=== PATIENT | female | born 1930 | race African-American/Black ===

== ENCOUNTER 2017-08-15 16:36 | Inpatient (IN) ==
[2017-08-15] MEDS ORDERED: FUROSEMIDE 40 MG/4 ML VIAL IV STA (17:58)
[2017-08-15] MEDS ORDERED: FUROSEMIDE 40 MG/4 ML VIAL ONE (18:53)
[2017-08-15 19:01] LABS: Basophils % 0.1 % (0.0-0.8); Hematocrit 35.6 VOL% (35.7-47.0); Immature Granulocytes % 0.5 %; Immature Granulocytes Absolute 0.05 #; Lymphocytes # 1.3 10*3/uL (1.4-4.0); Lymphocytes % 13.4 % (21.3-54.2); Mean Corpuscular HGB Conc 30.9 GM/DL (32-36); Mean Corpuscular Hemoglobin 32 PG (27-34); Mean Corpuscular Volume 103.5 FL (87-102); Mean Platelet Volume 9.9 FL (9.6-12.0); Monocytes # 0.6 10*3/uL (0.11-0.8); Monocytes % 6.6 % (1.7-12.7); Neutrophils # 7.6 10*3/uL (1.4-7.4); Neutrophils % 79.4 % (38.7-73.9); Platelet Count 323 T/CUMM (130-400); Red Blood Count 3.44 MC/CUMM (3.8-5.5); Red Cell Distribution Width 14.6 % (9.3-17.3); White Blood Count 9.6 T/CUMM (4-12)
[2017-08-15 19:28] LABS: Albumin 2.6 G/DL (3.4-5.0); Bilirubin,Total 0.4 MG/DL (0.2-1.0); Calcium 8.9 MG/DL (8.5-10.1); Osmolality,Calculated 293.8 MOS/KG (273-304); Potassium 4.8 MMOL/L (3.5-5.1); Total Protein 6.8 G/DL (6.4-8.3)
[2017-08-15 19:31] LABS: Troponin I Only 0.142 NG/ML (0.00-0.045)
[2017-08-15 21:24] LABS: Apearance,Urine CLOUDY (Clear); Bilirubin,Urine Negative (Negative); Blood, Urine Small mg/dL (Negative); Glucose,Urine (UA) Negative (Negative); Ketones,Urine 5 mg/dL (Negative); Nitrite,Urine Negative (Negative); Protein,Urine 100 MG/DL; Squamous Epithelial Cell,Urine Moderate /HPF (0-10); Urine Color Yellow (Yellow); Urine Specific Gravity 1.009 (1.001-1.035); Urine Urobilinogen < 2.0 EU/DL (0.2-1.0); WBC,Urine 858 /HPF (0-6)
[2017-08-15] MEDS ORDERED: cefTRIAXone 1,000 MG in SYRINGE 1 EACH IV SCH (22:00)
[2017-08-15] MEDS ORDERED: cefTRIAXone 1,000 MG VIAL ONE (22:42)
[2017-08-15] MEDS ORDERED: MORPHINE 2 MG/1 ML SYRINGE IV STA (22:53)
[2017-08-15] MEDS ORDERED: GLUCAGON 1 MG VIAL IM PRN (23:14)
[2017-08-15] MEDS ORDERED: DEXTROSE 50% 25 GM/50 ML VIAL IV PRN (23:14)
[2017-08-16 02:33] LABS: Basophils % 0.1 % (0.0-0.8); Hematocrit 32.8 VOL% (35.7-47.0); Hemoglobin 10.2 GM/DL (12.0-16.0); Immature Granulocytes % 0.6 %; Immature Granulocytes Absolute 0.05 #; Lymphocytes # 1.8 10*3/uL (1.4-4.0); Lymphocytes % 21.5 % (21.3-54.2); Mean Corpuscular HGB Conc 31.1 GM/DL (32-36); Mean Corpuscular Hemoglobin 32 PG (27-34); Mean Corpuscular Volume 102.2 FL (87-102); Mean Platelet Volume 10.1 FL (9.6-12.0); Monocytes # 0.7 10*3/uL (0.11-0.8); Monocytes % 8.9 % (1.7-12.7); Neutrophils # 5.7 10*3/uL (1.4-7.4); Neutrophils % 68.9 % (38.7-73.9); Platelet Count 290 T/CUMM (130-400); Red Blood Count 3.21 MC/CUMM (3.8-5.5); Red Cell Distribution Width 14.5 % (9.3-17.3); White Blood Count 8.3 T/CUMM (4-12)
[2017-08-16 02:52] LABS: Osmolality,Calculated 295.5 MOS/KG (273-304); Potassium 4.6 MMOL/L (3.5-5.1)
[2017-08-16 03:02] LABS: Folate 8.4 NG/ML (5.4-24.0)
[2017-08-16] MEDS: BUMETANIDE 1 MG/4 ML VIAL IV SCH ×2 (08:21→10:24)
[2017-08-16] MEDS: INSULIN LISPRO 100 UNIT/ML SUBCUT SCH ×4 (08:38→20:28)
[2017-08-16] MEDS ORDERED: SULFAMETHOX/TRIMETHOPRIM 800-160 MG TABLET PO SCH ×2 (14:30→15:00)
[2017-08-16] MEDS: GABAPENTIN 100 MG CAPSULE PO PRN (14:33)
[2017-08-16] MEDS: COLCHICINE 0.6 MG TABLET PO PRN (14:34)
[2017-08-16] MEDS ORDERED: ZINC OXIDE PASTE 113 GM TUBE TOP PRN (15:17)
[2017-08-16] MEDS: CARVEDILOL 6.25 MG TABLET PO SCH (17:34)
[2017-08-16] MEDS: FLUTICASONE 50 MCG NASAL SPRAY 16 GM BOTTLE BOTH NARES SCH (20:30)
[2017-08-17 06:02] LABS: Basophils % 0.2 % (0.0-0.8); Hematocrit 28.7 VOL% (35.7-47.0); Hemoglobin 8.9 GM/DL (12.0-16.0); Immature Granulocytes % 0.3 %; Immature Granulocytes Absolute 0.03 #; Lymphocytes # 2.4 10*3/uL (1.4-4.0); Lymphocytes % 25.8 % (21.3-54.2); Mean Corpuscular Hemoglobin 32 PG (27-34); Mean Corpuscular Volume 102.9 FL (87-102); Mean Platelet Volume 9.9 FL (9.6-12.0); Monocytes % 10.4 % (1.7-12.7); Neutrophils # 5.8 10*3/uL (1.4-7.4); Neutrophils % 63.3 % (38.7-73.9); Platelet Count 253 T/CUMM (130-400); Red Blood Count 2.79 MC/CUMM (3.8-5.5); Red Cell Distribution Width 14.5 % (9.3-17.3); White Blood Count 9.1 T/CUMM (4-12)
[2017-08-17 06:32] LABS: Calcium 7.8 MG/DL (8.5-10.1); Osmolality,Calculated 290.7 MOS/KG (273-304); Potassium 4.2 MMOL/L (3.5-5.1)
[2017-08-17] MEDS: INSULIN LISPRO 100 UNIT/ML SUBCUT SCH ×4 (07:32→22:15)
[2017-08-17] MEDS: CARVEDILOL 6.25 MG TABLET PO SCH ×2 (08:57→17:55)
[2017-08-17] MEDS: ALLOPURINOL 300 MG TABLET PO SCH (09:31)
[2017-08-17] MEDS: FUROSEMIDE 80 MG TABLET PO SCH (09:31)
[2017-08-17] MEDS: predniSONE 5 MG TABLET PO SCH (09:31)
[2017-08-17] MEDS: COLCHICINE 0.6 MG TABLET PO PRN ×2 (09:32→22:41)
[2017-08-17] MEDS: FLUTICASONE 50 MCG NASAL SPRAY 16 GM BOTTLE BOTH NARES SCH ×2 (09:33→22:43)
[2017-08-17] MEDS: AMPICILLIN INJ 1,000 MG in SODIUM CHLORIDE 0.9% 100 ML IV SCH ×2 (17:55→22:37)
[2017-08-17] MEDS: GABAPENTIN 100 MG CAPSULE PO PRN (22:41)
[2017-08-18] MEDS: traMADol 50 MG TABLET PO PRN (01:26)
[2017-08-18] MEDS: AMPICILLIN INJ 1,000 MG in SODIUM CHLORIDE 0.9% 100 ML IV SCH ×4 (04:59→22:45)
[2017-08-18 06:47] LABS: Basophils % 0.2 % (0.0-0.8); Hematocrit 27.2 VOL% (35.7-47.0); Hemoglobin 8.7 GM/DL (12.0-16.0); Immature Granulocytes % 0.4 %; Immature Granulocytes Absolute 0.03 #; Lymphocytes # 2.1 10*3/uL (1.4-4.0); Lymphocytes % 26.1 % (21.3-54.2); Mean Corpuscular Hemoglobin 32 PG (27-34); Mean Corpuscular Volume 100.7 FL (87-102); Monocytes # 0.7 10*3/uL (0.11-0.8); Monocytes % 8.6 % (1.7-12.7); Neutrophils # 5.3 10*3/uL (1.4-7.4); Neutrophils % 64.7 % (38.7-73.9); Platelet Count 236 T/CUMM (130-400); Red Cell Distribution Width 14.6 % (9.3-17.3); White Blood Count 8.2 T/CUMM (4-12)
[2017-08-18 07:07] LABS: Calcium 7.8 MG/DL (8.5-10.1); Osmolality,Calculated 288.8 MOS/KG (273-304); Potassium 4.2 MMOL/L (3.5-5.1)
[2017-08-18] MEDS: INSULIN LISPRO 100 UNIT/ML SUBCUT SCH ×4 (07:57→21:13)
[2017-08-18] MEDS: ALLOPURINOL 300 MG TABLET PO SCH (08:53)
[2017-08-18] MEDS: CARVEDILOL 6.25 MG TABLET PO SCH ×2 (08:53→17:19)
[2017-08-18] MEDS: GABAPENTIN 100 MG CAPSULE PO PRN ×2 (08:54→22:49)
[2017-08-18] MEDS: COLCHICINE 0.6 MG TABLET PO PRN (08:54)
[2017-08-18] MEDS: predniSONE 5 MG TABLET PO SCH (08:54)
[2017-08-18] MEDS: FUROSEMIDE 80 MG TABLET PO SCH (08:54)
[2017-08-18] MEDS: FLUTICASONE 50 MCG NASAL SPRAY 16 GM BOTTLE BOTH NARES SCH ×2 (08:54→22:48)
[2017-08-18] MEDS ORDERED: SODIUM CHLORIDE 0.9% 1,000 ML IV SCH (13:00)
[2017-08-18] MEDS: MAGNESIUM CHLORIDE 64 MG TABLET PO SCH ×2 (13:23→22:49)
[2017-08-19] MEDS: AMPICILLIN INJ 1,000 MG in SODIUM CHLORIDE 0.9% 100 ML IV SCH (05:46)
[2017-08-19 06:18] LABS: Calcium 7.8 MG/DL (8.5-10.1); Osmolality,Calculated 291.7 MOS/KG (273-304); Potassium 4.4 MMOL/L (3.5-5.1)
[2017-08-19] MEDS ORDERED: AZITHROMYCIN 250 MG TABLET PO ONE (07:46)
[2017-08-19] MEDS ORDERED: NIFEdipine 10 MG CAPSULE PO PRN (07:48)
[2017-08-19] MEDS ORDERED: LEVOFLOXACIN INJ 500 MG in PREMIX 1 EACH IV SCH ×2 (08:00→09:00)
[2017-08-19] MEDS: INSULIN LISPRO 100 UNIT/ML SUBCUT SCH ×4 (08:37→22:51)
[2017-08-19] MEDS: CARVEDILOL 6.25 MG TABLET PO SCH ×2 (08:40→16:55)
[2017-08-19] MEDS: FLUTICASONE 50 MCG NASAL SPRAY 16 GM BOTTLE BOTH NARES SCH ×2 (08:40→22:47)
[2017-08-19] MEDS: predniSONE 5 MG TABLET PO SCH (08:40)
[2017-08-19] MEDS: MAGNESIUM CHLORIDE 64 MG TABLET PO SCH ×2 (08:40→22:47)
[2017-08-19] MEDS: ALLOPURINOL 300 MG TABLET PO SCH (08:40)
[2017-08-19] MEDS: COLCHICINE 0.6 MG TABLET PO PRN ×2 (08:40→22:47)
[2017-08-19] MEDS: GABAPENTIN 100 MG CAPSULE PO PRN ×2 (08:41→22:48)
[2017-08-19] MEDS: traMADol 50 MG TABLET PO PRN (13:16)
[2017-08-20] MEDS: INSULIN LISPRO 100 UNIT/ML SUBCUT SCH ×4 (09:03→21:42)
[2017-08-20] MEDS: AZITHROMYCIN 250 MG TABLET PO SCH (09:05)
[2017-08-20] MEDS: ALLOPURINOL 300 MG TABLET PO SCH (09:05)
[2017-08-20] MEDS: MAGNESIUM CHLORIDE 64 MG TABLET PO SCH ×2 (09:05→21:40)
[2017-08-20] MEDS: predniSONE 5 MG TABLET PO SCH (09:06)
[2017-08-20] MEDS: CARVEDILOL 6.25 MG TABLET PO SCH ×2 (09:06→17:15)
[2017-08-20] MEDS: FLUTICASONE 50 MCG NASAL SPRAY 16 GM BOTTLE BOTH NARES SCH ×2 (09:06→21:41)
[2017-08-20] MEDS ORDERED: SODIUM TETRADECYL SULFATE IV ONE (11:01)
[2017-08-20] MEDS ORDERED: TUBERCULIN SKIN TEST 0.1 ML SYRINGE INTRADERM ONE (12:00)
[2017-08-20] MEDS: traMADol 50 MG TABLET PO PRN (15:33)
[2017-08-20] MEDS: ENOXAPARIN 30 MG/0.3 ML SYRINGE SUBCUT SCH (17:16)
[2017-08-20 18:05] LABS: PT Patient Result 10.9 SECS
[2017-08-21 05:33] LABS: PT Patient Result 10.8 SECS
[2017-08-21] MEDS: INSULIN LISPRO 100 UNIT/ML SUBCUT SCH ×4 (08:55→20:42)
[2017-08-21] MEDS: ALLOPURINOL 300 MG TABLET PO SCH (08:57)
[2017-08-21] MEDS: MAGNESIUM CHLORIDE 64 MG TABLET PO SCH ×2 (08:57→20:41)
[2017-08-21] MEDS: CARVEDILOL 6.25 MG TABLET PO SCH ×2 (08:57→17:09)
[2017-08-21] MEDS: AZITHROMYCIN 250 MG TABLET PO SCH (08:57)
[2017-08-21] MEDS: FLUTICASONE 50 MCG NASAL SPRAY 16 GM BOTTLE BOTH NARES SCH ×2 (08:58→20:43)
[2017-08-21] MEDS: predniSONE 5 MG TABLET PO SCH (08:58)
[2017-08-21] MEDS: LEVOFLOXACIN 500 MG TABLET PO SCH (09:01)
[2017-08-21 11:04] LABS: Basophils % 0.2 % (0.0-0.8); Hematocrit 29.9 VOL% (35.7-47.0); Hemoglobin 9.4 GM/DL (12.0-16.0); Immature Granulocytes % 0.6 %; Immature Granulocytes Absolute 0.03 #; Lymphocytes # 1.8 10*3/uL (1.4-4.0); Mean Corpuscular HGB Conc 31.4 GM/DL (32-36); Mean Corpuscular Hemoglobin 32 PG (27-34); Mean Corpuscular Volume 102.4 FL (87-102); Mean Platelet Volume 9.4 FL (9.6-12.0); Monocytes # 0.6 10*3/uL (0.11-0.8); Neutrophils # 2.7 10*3/uL (1.4-7.4); Neutrophils % 52.2 % (38.7-73.9); Platelet Count 238 T/CUMM (130-400); Red Blood Count 2.92 MC/CUMM (3.8-5.5); Red Cell Distribution Width 14.8 % (9.3-17.3); White Blood Count 5.1 T/CUMM (4-12)
[2017-08-21 12:39] LABS: Calcium 8.1 MG/DL (8.5-10.1); Osmolality,Calculated 287.2 MOS/KG (273-304); Potassium 4.5 MMOL/L (3.5-5.1)
[2017-08-21] MEDS: GABAPENTIN 100 MG CAPSULE PO PRN (15:19)
[2017-08-21] MEDS: ENOXAPARIN 30 MG/0.3 ML SYRINGE SUBCUT SCH (20:42)
[2017-08-22 06:14] LABS: Basophils % 0.2 % (0.0-0.8); Hematocrit 29.9 VOL% (35.7-47.0); Hemoglobin 9.3 GM/DL (12.0-16.0); Immature Granulocytes % 0.5 %; Immature Granulocytes Absolute 0.03 #; Lymphocytes # 2.1 10*3/uL (1.4-4.0); Lymphocytes % 36.1 % (21.3-54.2); Mean Corpuscular HGB Conc 31.1 GM/DL (32-36); Mean Corpuscular Hemoglobin 32 PG (27-34); Mean Platelet Volume 9.8 FL (9.6-12.0); Monocytes # 0.5 10*3/uL (0.11-0.8); Monocytes % 8.8 % (1.7-12.7); Neutrophils # 3.1 10*3/uL (1.4-7.4); Neutrophils % 54.4 % (38.7-73.9); Platelet Count 240 T/CUMM (130-400); Red Blood Count 2.93 MC/CUMM (3.8-5.5); Red Cell Distribution Width 14.6 % (9.3-17.3); White Blood Count 5.7 T/CUMM (4-12)
[2017-08-22 06:33] LABS: Platelet Estimate Normal
[2017-08-22] MEDS ORDERED: SKIN HEALING OINT (AQUAPHOR) 50 GM TUBE TOP PRN (09:15)
[2017-08-22] MEDS: predniSONE 5 MG TABLET PO SCH (09:16)
[2017-08-22] MEDS: MAGNESIUM CHLORIDE 64 MG TABLET PO SCH ×2 (09:16→20:34)
[2017-08-22] MEDS: CARVEDILOL 6.25 MG TABLET PO SCH ×2 (09:16→16:19)
[2017-08-22] MEDS: AZITHROMYCIN 250 MG TABLET PO SCH (09:16)
[2017-08-22] MEDS: GABAPENTIN 100 MG CAPSULE PO PRN (09:16)
[2017-08-22] MEDS: INSULIN LISPRO 100 UNIT/ML SUBCUT SCH ×4 (09:17→21:18)
[2017-08-22] MEDS: ALLOPURINOL 300 MG TABLET PO SCH (09:18)
[2017-08-22] MEDS: FLUTICASONE 50 MCG NASAL SPRAY 16 GM BOTTLE BOTH NARES SCH ×2 (09:18→20:34)
[2017-08-22] MEDS ORDERED: WARFARIN 5 MG TABLET PO SCH (18:00)
[2017-08-22] MEDS: ENOXAPARIN 30 MG/0.3 ML SYRINGE SUBCUT SCH (20:33)
[2017-08-23 06:03] LABS: Basophils % 0.4 % (0.0-0.8); Hematocrit 29.5 VOL% (35.7-47.0); Hemoglobin 9.2 GM/DL (12.0-16.0); Immature Granulocytes % 0.5 %; Immature Granulocytes Absolute 0.03 #; Lymphocytes % 35.6 % (21.3-54.2); Mean Corpuscular HGB Conc 31.2 GM/DL (32-36); Mean Corpuscular Hemoglobin 32 PG (27-34); Mean Platelet Volume 9.8 FL (9.6-12.0); Monocytes # 0.5 10*3/uL (0.11-0.8); Monocytes % 8.7 % (1.7-12.7); Neutrophils % 54.8 % (38.7-73.9); Platelet Count 239 T/CUMM (130-400); Red Blood Count 2.92 MC/CUMM (3.8-5.5); Red Cell Distribution Width 14.7 % (9.3-17.3); White Blood Count 5.5 T/CUMM (4-12)
[2017-08-23 06:35] LABS: Ferritin 59.4 ng/ml (8-252)
[2017-08-23 07:26] LABS: INR 1.1; PT Patient Result 11.2 SECS
[2017-08-23] MEDS: INSULIN LISPRO 100 UNIT/ML SUBCUT SCH ×2 (07:26→11:23)
[2017-08-23] MEDS: ALLOPURINOL 300 MG TABLET PO SCH (08:50)
[2017-08-23] MEDS: traMADol 50 MG TABLET PO PRN (08:51)
[2017-08-23] MEDS: MAGNESIUM CHLORIDE 64 MG TABLET PO SCH (08:51)
[2017-08-23] MEDS: AZITHROMYCIN 250 MG TABLET PO SCH (08:51)
[2017-08-23] MEDS: LEVOFLOXACIN 500 MG TABLET PO SCH (08:51)
[2017-08-23] MEDS: predniSONE 5 MG TABLET PO SCH (08:51)
[2017-08-23] MEDS: CARVEDILOL 6.25 MG TABLET PO SCH (08:52)
[2017-08-23] MEDS: FLUTICASONE 50 MCG NASAL SPRAY 16 GM BOTTLE BOTH NARES SCH (08:55)
[2017-08-23] MEDS ORDERED: amLODIPine 10 MG TABLET PO SCH (10:00)
[2017-08-23 11:59] VITALS: BP 111/60
== END 2017-08-23 15:08 | DRG 299 ==
LOC: N.ED 16:36 → SUATTDRO 21:59 → N.EDINP 21:59 → N.2E 23:30
PROVIDERS: ADMIT Internal Medicine; ATTEND Internal Medicine

== ENCOUNTER 2017-09-14 08:30 | Inpatient (IN) ==
[2017-09-14] MEDS ORDERED: ONDANSETRON 4 MG/2 ML VIAL IV STA (09:10)
[2017-09-14] MEDS ORDERED: PANTOPRAZOLE 40 MG VIAL IV STA (09:10)
[2017-09-14 10:52] LABS: Immature Granulocytes % 0.4 %; Immature Granulocytes Absolute 0.03 #; Lymphocytes # 2.1 10*3/uL (1.4-4.0); Lymphocytes % 27.2 % (21.3-54.2); Mean Corpuscular HGB Conc 30.4 GM/DL (32-36); Mean Corpuscular Hemoglobin 32 PG (27-34); Mean Corpuscular Volume 103.8 FL (87-102); Mean Platelet Volume 9.8 FL (9.6-12.0); Monocytes # 0.4 10*3/uL (0.11-0.8); Monocytes % 5.5 % (1.7-12.7); Neutrophils # 5.1 10*3/uL (1.4-7.4); Neutrophils % 66.9 % (38.7-73.9); Platelet Count 185 T/CUMM (130-400); Red Blood Count 1.84 MC/CUMM (3.8-5.5); Red Cell Distribution Width 15.3 % (9.3-17.3); White Blood Count 7.6 T/CUMM (4-12)
[2017-09-14 10:55] LABS: Hematocrit 19.1 VOL% (35.7-47.0); Hemoglobin 5.8 GM/DL (12.0-16.0)
[2017-09-14] MEDS ORDERED: SODIUM CHLORIDE 0.9% 1,000 ML IV PRN ×3 (11:00→14:57)
[2017-09-14] MEDS ORDERED: PANTOPRAZOLE 40 MG VIAL IV ONE (11:04)
[2017-09-14] MEDS ORDERED: ONDANSETRON 4 MG/2 ML VIAL ONE ×2 (11:05→11:58)
[2017-09-14 11:16] LABS: PT Patient Result 62.5 SECS; Partial Thromboplastin Time 43.4 SECS (0-40)
[2017-09-14 11:18] LABS: INR 6.3; Troponin I Only 0.176 NG/ML (0.00-0.045)
[2017-09-14] MEDS ORDERED: PHYTONADIONE 10 MG/1 ML AMP IV STA (11:21)
[2017-09-14 11:35] LABS: Bilirubin,Total 0.5 MG/DL (0.2-1.0); Calcium 7.6 MG/DL (8.5-10.1); Osmolality,Calculated 332.5 MOS/KG (273-304); Total Protein 4.7 G/DL (6.4-8.3)
[2017-09-14 11:38] LABS: Potassium 6.4 MMOL/L (3.5-5.1)
[2017-09-14] MEDS ORDERED: DEXTROSE 50% 25 GM/50 ML VIAL IV STA (11:41)
[2017-09-14] MEDS ORDERED: CALCIUM CHLORIDE 1,000 MG/10 ML SYRINGE IV STA (11:41)
[2017-09-14] MEDS ORDERED: ALBUTEROL NEB SOLN 5 MG/ML 20 ML/BOTTLE CONT NEB STA (11:41)
[2017-09-14] MEDS ORDERED: INSULIN REGULAR 100 UNIT/ML IV STA (11:42)
[2017-09-14] MEDS ORDERED: DEXTROSE 50% 25 GM/50 ML SYRINGE IV ONE (11:52)
[2017-09-14] MEDS ORDERED: CALCIUM CHLORIDE 1,000 MG/10 ML SYRINGE IV ONE ×2 (11:52→20:47)
[2017-09-14] MEDS ORDERED: PHYTONADIONE 10 MG/1 ML AMP ONE (11:52)
[2017-09-14] MEDS ORDERED: INSULIN REGULAR 100 UNIT/ML ONE (11:54)
[2017-09-14] MEDS ORDERED: ASPIRIN 325 MG TABLET ONE (11:58)
[2017-09-14] MEDS ORDERED: guaiFENesin/DM ER 600-30 MG TABLET PO PRN (13:35)
[2017-09-14] MEDS ORDERED: ONDANSETRON 4 MG/2 ML VIAL IV PRN (13:35)
[2017-09-14] MEDS ORDERED: MORPHINE 2 MG/1 ML SYRINGE IV PRN (13:35)
[2017-09-14] MEDS ORDERED: diphenhydrAMINE CAP 25 MG CAPSULE PO PRN (13:35)
[2017-09-14] MEDS ORDERED: ACETAMINOPHEN 325 MG TABLET PO PRN ×2 (13:35)
[2017-09-14] MEDS ORDERED: PHYTONADIONE 10 MG/1 ML AMP SUBCUT ONE (13:44)
[2017-09-14] MEDS: PANTOPRAZOLE 40 MG VIAL IV SCH ×2 (16:54→20:41)
[2017-09-14] MEDS: SODIUM CHLORIDE 0.9% 1,000 ML IV SCH (18:40)
[2017-09-14 20:32] LABS: Albumin 2.4 G/DL (3.4-5.0); Bilirubin,Total 1.3 MG/DL (0.2-1.0); Calcium 8.3 MG/DL (8.5-10.1); Osmolality,Calculated 333.3 MOS/KG (273-304); Total Protein 4.7 G/DL (6.4-8.3)
[2017-09-14 20:34] LABS: Troponin I Only 0.132 NG/ML (0.00-0.045)
[2017-09-14 20:35] LABS: Potassium 6.5 MMOL/L (3.5-5.1)
[2017-09-14] MEDS ORDERED: SODIUM BICARBONATE 50 MEQ/50 ML SYRINGE IV ONE (20:47)
[2017-09-14] MEDS ORDERED: INSULIN REGULAR 100 UNIT/ML IV ONE (20:47)
[2017-09-14] MEDS ORDERED: DEXTROSE 50% 25 GM/50 ML VIAL IV ONE (20:47)
[2017-09-15] MEDS ORDERED: CALCIUM GLUCONATE 1,000 MG/10 ML VIAL IV ONE (00:01)
[2017-09-15] MEDS: BACITRACIN OINT 0.9 GM PACK TOP SCH ×2 (05:12→09:21)
[2017-09-15] MEDS: SODIUM CHLORIDE 0.9% 1,000 ML IV SCH ×5 (05:12→20:30)
[2017-09-15 05:39] LABS: INR 1.6; PT Patient Result 16.7 SECS
[2017-09-15 05:42] LABS: Calcium 8.6 MG/DL (8.5-10.1); Osmolality,Calculated 341.7 MOS/KG (273-304); Potassium 5.5 MMOL/L (3.5-5.1)
[2017-09-15 07:22] LABS: Hematocrit 19.6 VOL% (35.7-47.0); Hemoglobin 6.5 GM/DL (12.0-16.0); Immature Granulocytes % 0.8 %; Immature Granulocytes Absolute 0.08 #; Lymphocytes # 1.7 10*3/uL (1.4-4.0); Lymphocytes % 17.5 % (21.3-54.2); Mean Corpuscular HGB Conc 33.2 GM/DL (32-36); Mean Corpuscular Hemoglobin 32 PG (27-34); Mean Corpuscular Volume 95.6 FL (87-102); Mean Platelet Volume 10.5 FL (9.6-12.0); Monocytes # 0.6 10*3/uL (0.11-0.8); Monocytes % 5.7 % (1.7-12.7); NRBC # 0.04 10*3/uL; Neutrophils # 7.3 10*3/uL (1.4-7.4); Platelet Count 112 T/CUMM (130-400); Red Blood Count 2.05 MC/CUMM (3.8-5.5); Red Cell Distribution Width 15.1 % (9.3-17.3); White Blood Count 9.6 T/CUMM (4-12)
[2017-09-15 07:46] LABS: Band Neutrophils 1 % (0-10); Hypochromasia 1+; Lymphocytes 14 % (20-55); Segmented Neutrophils 84 % (50-85); Total Cells Counted 100
[2017-09-15 07:47] LABS: Microcytosis 1+; Platelet Estimate Adequate
[2017-09-15] MEDS: PANTOPRAZOLE 40 MG VIAL IV SCH ×2 (09:09→20:51)
[2017-09-15] MEDS ORDERED: SODIUM CHLORIDE 0.9% 1,000 ML IV PRN ×2 (11:06→12:29)
[2017-09-15 19:02] LABS: Hematocrit 24.7 VOL% (35.7-47.0); Hemoglobin 8.5 GM/DL (12.0-16.0)
[2017-09-16 05:42] LABS: Hematocrit 23.3 VOL% (35.7-47.0); Hemoglobin 7.8 GM/DL (12.0-16.0); Immature Granulocytes % 0.7 %; Immature Granulocytes Absolute 0.06 #; Lymphocytes # 1.5 10*3/uL (1.4-4.0); Lymphocytes % 17.9 % (21.3-54.2); Mean Corpuscular HGB Conc 33.5 GM/DL (32-36); Mean Corpuscular Hemoglobin 31 PG (27-34); Mean Corpuscular Volume 92.5 FL (87-102); Mean Platelet Volume 10.6 FL (9.6-12.0); Monocytes # 0.5 10*3/uL (0.11-0.8); Monocytes % 5.8 % (1.7-12.7); NRBC # 0.05 10*3/uL; Neutrophils # 6.3 10*3/uL (1.4-7.4); Neutrophils % 75.6 % (38.7-73.9); Platelet Count 94 T/CUMM (130-400); Red Blood Count 2.52 MC/CUMM (3.8-5.5); Red Cell Distribution Width 16.1 % (9.3-17.3); White Blood Count 8.4 T/CUMM (4-12)
[2017-09-16 05:47] LABS: INR 1.5; PT Patient Result 15.7 SECS
[2017-09-16] MEDS: SODIUM CHLORIDE 0.9% 1,000 ML IV SCH ×3 (06:00→21:54)
[2017-09-16 06:09] LABS: Osmolality,Calculated 339.4 MOS/KG (273-304); Potassium 4.9 MMOL/L (3.5-5.1)
[2017-09-16 06:37] LABS: Anisocytosis 1+; Hypochromasia 1+; Microcytosis 1+; Ovalocytes Slight; Platelet Estimate Decreased
[2017-09-16] MEDS: PANTOPRAZOLE 40 MG VIAL IV SCH ×2 (11:22→21:54)
[2017-09-16] MEDS: BACITRACIN OINT 0.9 GM PACK TOP SCH (11:28)
[2017-09-16] MEDS ORDERED: traMADol 50 MG TABLET PO PRN (13:19)
[2017-09-16] MEDS ORDERED: SKIN HEALING OINT (AQUAPHOR) 50 GM TUBE TOP PRN (13:19)
[2017-09-16] MEDS ORDERED: GABAPENTIN 100 MG CAPSULE PO PRN (13:19)
[2017-09-16] MEDS ORDERED: SODIUM CHLORIDE 0.9% 1,000 ML IV PRN ×2 (14:39→15:26)
[2017-09-16] MEDS: predniSONE 10 MG TABLET PO SCH (19:21)
[2017-09-16] MEDS: FLUTICASONE 50 MCG NASAL SPRAY 16 GM BOTTLE BOTH NARES SCH ×2 (19:21→21:54)
[2017-09-16] MEDS: ALLOPURINOL 300 MG TABLET PO SCH (19:21)
[2017-09-16] MEDS: MAGNESIUM CHLORIDE 64 MG TABLET PO SCH ×2 (19:21→21:54)
[2017-09-16] MEDS: MULTIVITAMIN (CENTRUM) TABLET PO SCH (19:22)
[2017-09-17] MEDS: SODIUM CHLORIDE 0.9% 1,000 ML IV SCH (00:06)
[2017-09-17] MEDS: DEXTROSE 5% NACL 0.45% 1,000 ML IV SCH ×3 (00:08→15:55)
[2017-09-17 04:59] LABS: Basophils % 0.1 % (0.0-0.8); Hematocrit 28.7 VOL% (35.7-47.0); Hemoglobin 9.3 GM/DL (12.0-16.0); Immature Granulocytes % 0.6 %; Immature Granulocytes Absolute 0.04 #; Lymphocytes # 1.4 10*3/uL (1.4-4.0); Lymphocytes % 19.4 % (21.3-54.2); Mean Corpuscular HGB Conc 32.4 GM/DL (32-36); Mean Corpuscular Hemoglobin 31 PG (27-34); Mean Corpuscular Volume 96.6 FL (87-102); Mean Platelet Volume 10.8 FL (9.6-12.0); Monocytes # 0.5 10*3/uL (0.11-0.8); Monocytes % 7.6 % (1.7-12.7); NRBC # 0.07 10*3/uL; Neutrophils # 5.1 10*3/uL (1.4-7.4); Neutrophils % 72.3 % (38.7-73.9); Red Blood Count 2.97 MC/CUMM (3.8-5.5); Red Cell Distribution Width 15.7 % (9.3-17.3); White Blood Count 7.1 T/CUMM (4-12)
[2017-09-17 05:01] LABS: INR 1.7; PT Patient Result 17.2 SECS
[2017-09-17 05:13] LABS: Platelet Count 88 T/CUMM (130-400)
[2017-09-17 05:21] LABS: Hypochromasia 1+; Ovalocytes Slight
[2017-09-17 05:22] LABS: Giant Platelets Few; Microcytosis Slight; Platelet Estimate Decreased
[2017-09-17 05:24] LABS: Calcium 7.9 MG/DL (8.5-10.1); Osmolality,Calculated 328.3 MOS/KG (273-304); Potassium 4.3 MMOL/L (3.5-5.1)
[2017-09-17] MEDS: predniSONE 10 MG TABLET PO SCH (09:05)
[2017-09-17] MEDS: MAGNESIUM CHLORIDE 64 MG TABLET PO SCH ×2 (09:05→21:21)
[2017-09-17] MEDS: FLUTICASONE 50 MCG NASAL SPRAY 16 GM BOTTLE BOTH NARES SCH ×2 (09:05→21:22)
[2017-09-17] MEDS: ALLOPURINOL 300 MG TABLET PO SCH (09:05)
[2017-09-17] MEDS: PANTOPRAZOLE 40 MG VIAL IV SCH ×2 (09:06→21:23)
[2017-09-17] MEDS: BACITRACIN OINT 0.9 GM PACK TOP SCH (09:10)
[2017-09-17] MEDS: MULTIVITAMIN (CENTRUM) TABLET PO SCH (09:10)
[2017-09-18] MEDS: DEXTROSE 5% NACL 0.45% 1,000 ML IV SCH ×3 (04:17→21:30)
[2017-09-18 05:32] LABS: Basophils % 0.1 % (0.0-0.8); Hematocrit 29.6 VOL% (35.7-47.0); Hemoglobin 9.8 GM/DL (12.0-16.0); Immature Granulocytes % 0.9 %; Immature Granulocytes Absolute 0.06 #; Lymphocytes # 1.8 10*3/uL (1.4-4.0); Lymphocytes % 26.6 % (21.3-54.2); Mean Corpuscular HGB Conc 33.1 GM/DL (32-36); Mean Corpuscular Hemoglobin 32 PG (27-34); Mean Corpuscular Volume 96.1 FL (87-102); Monocytes # 0.6 10*3/uL (0.11-0.8); NRBC # 0.04 10*3/uL; Neutrophils # 4.4 10*3/uL (1.4-7.4); Neutrophils % 63.4 % (38.7-73.9); Platelet Count 100 T/CUMM (130-400); Red Blood Count 3.08 MC/CUMM (3.8-5.5); White Blood Count 6.9 T/CUMM (4-12)
[2017-09-18 05:41] LABS: INR 1.8; PT Patient Result 18.2 SECS
[2017-09-18 06:04] LABS: Calcium 7.8 MG/DL (8.5-10.1); Osmolality,Calculated 319.4 MOS/KG (273-304); Potassium 4.1 MMOL/L (3.5-5.1)
[2017-09-18] MEDS: MULTIVITAMIN (CENTRUM) TABLET PO SCH (08:47)
[2017-09-18] MEDS: MAGNESIUM CHLORIDE 64 MG TABLET PO SCH ×2 (08:48→21:24)
[2017-09-18] MEDS: ALLOPURINOL 300 MG TABLET PO SCH (08:48)
[2017-09-18] MEDS: predniSONE 10 MG TABLET PO SCH (08:48)
[2017-09-18] MEDS: PANTOPRAZOLE 40 MG VIAL IV SCH ×2 (08:48→21:24)
[2017-09-18] MEDS: FLUTICASONE 50 MCG NASAL SPRAY 16 GM BOTTLE BOTH NARES SCH ×2 (08:48→21:24)
[2017-09-18] MEDS: BACITRACIN OINT 0.9 GM PACK TOP SCH (08:49)
[2017-09-19 07:18] LABS: Hematocrit 27.1 VOL% (35.7-47.0); Immature Granulocytes % 0.6 %; Immature Granulocytes Absolute 0.04 #; Lymphocytes # 2.1 10*3/uL (1.4-4.0); Lymphocytes % 32.2 % (21.3-54.2); Mean Corpuscular HGB Conc 33.2 GM/DL (32-36); Mean Corpuscular Hemoglobin 32 PG (27-34); Mean Corpuscular Volume 95.8 FL (87-102); Mean Platelet Volume 11.3 FL (9.6-12.0); Monocytes # 0.7 10*3/uL (0.11-0.8); Monocytes % 10.3 % (1.7-12.7); Neutrophils # 3.8 10*3/uL (1.4-7.4); Neutrophils % 56.9 % (38.7-73.9); Platelet Count 93 T/CUMM (130-400); Red Blood Count 2.83 MC/CUMM (3.8-5.5); White Blood Count 6.6 T/CUMM (4-12)
[2017-09-19 07:30] LABS: INR 1.8
[2017-09-19 07:41] LABS: Microcytosis 1+; Platelet Estimate Decreased
[2017-09-19 07:51] LABS: Calcium 7.1 MG/DL (8.5-10.1); Osmolality,Calculated 306.7 MOS/KG (273-304); Potassium 4.1 MMOL/L (3.5-5.1)
[2017-09-19 07:56] LABS: Albumin 1.8 G/DL (3.4-5.0); Bilirubin,Total 0.8 MG/DL (0.2-1.0); Calcium 7.5 MG/DL (8.5-10.1); Osmolality,Calculated 305.7 MOS/KG (273-304); Potassium 4.1 MMOL/L (3.5-5.1); Total Protein 4.1 G/DL (6.4-8.3)
[2017-09-19] MEDS: DEXTROSE 5% NACL 0.45% 1,000 ML IV SCH ×3 (08:10→16:20)
[2017-09-19] MEDS: FLUTICASONE 50 MCG NASAL SPRAY 16 GM BOTTLE BOTH NARES SCH ×2 (08:20→21:12)
[2017-09-19] MEDS: ZINC OXIDE PASTE 113 GM TUBE TOP PRN (08:21)
[2017-09-19] MEDS: BACITRACIN OINT 0.9 GM PACK TOP SCH (08:21)
[2017-09-19] MEDS: PANTOPRAZOLE 40 MG VIAL IV SCH ×2 (10:40→21:11)
[2017-09-19] MEDS: MULTIVITAMIN (CENTRUM) TABLET PO SCH (10:50)
[2017-09-19] MEDS: amLODIPine 2.5 MG TABLET PO SCH (10:50)
[2017-09-19] MEDS: MAGNESIUM CHLORIDE 64 MG TABLET PO SCH ×2 (10:50→21:11)
[2017-09-19] MEDS: predniSONE 10 MG TABLET PO SCH (10:50)
[2017-09-19] MEDS: ALLOPURINOL 300 MG TABLET PO SCH (10:50)
[2017-09-19] MEDS: SKIN HEALING OINT (AQUAPHOR) 50 GM TUBE TOP PRN (10:58)
[2017-09-20 07:18] LABS: Basophils % 0.2 % (0.0-0.8); Hematocrit 27.9 VOL% (35.7-47.0); Hemoglobin 9.3 GM/DL (12.0-16.0); Immature Granulocytes % 0.5 %; Immature Granulocytes Absolute 0.03 #; Lymphocytes # 1.8 10*3/uL (1.4-4.0); Lymphocytes % 27.1 % (21.3-54.2); Mean Corpuscular HGB Conc 33.3 GM/DL (32-36); Mean Corpuscular Hemoglobin 31 PG (27-34); Mean Corpuscular Volume 94.3 FL (87-102); Mean Platelet Volume 11.1 FL (9.6-12.0); Monocytes # 0.6 10*3/uL (0.11-0.8); Neutrophils # 4.1 10*3/uL (1.4-7.4); Neutrophils % 63.2 % (38.7-73.9); Platelet Count 99 T/CUMM (130-400); Red Blood Count 2.96 MC/CUMM (3.8-5.5); Red Cell Distribution Width 15.6 % (9.3-17.3); White Blood Count 6.5 T/CUMM (4-12)
[2017-09-20 07:39] LABS: Osmolality,Calculated 297.1 MOS/KG (273-304); Potassium 4.3 MMOL/L (3.5-5.1)
[2017-09-20 07:53] LABS: INR 1.7; PT Patient Result 17.7 SECS
[2017-09-20 08:23] LABS: Hypochromasia 1+; Microcytosis Slight; Ovalocytes Slight; Platelet Estimate Decreased
[2017-09-20] MEDS: PANTOPRAZOLE 40 MG VIAL IV SCH ×2 (09:19→21:27)
[2017-09-20] MEDS: ALLOPURINOL 300 MG TABLET PO SCH (09:21)
[2017-09-20] MEDS: MULTIVITAMIN (CENTRUM) TABLET PO SCH (09:21)
[2017-09-20] MEDS: predniSONE 10 MG TABLET PO SCH (09:23)
[2017-09-20] MEDS: amLODIPine 2.5 MG TABLET PO SCH (09:23)
[2017-09-20] MEDS: MAGNESIUM CHLORIDE 64 MG TABLET PO SCH ×2 (09:23→21:25)
[2017-09-20] MEDS: FLUTICASONE 50 MCG NASAL SPRAY 16 GM BOTTLE BOTH NARES SCH ×2 (09:25→21:24)
[2017-09-20] MEDS: ZINC OXIDE PASTE 113 GM TUBE TOP PRN (09:25)
[2017-09-20] MEDS: BACITRACIN OINT 0.9 GM PACK TOP SCH (09:25)
[2017-09-20] MEDS: SKIN HEALING OINT (AQUAPHOR) 50 GM TUBE TOP PRN (09:25)
[2017-09-20] MEDS: DEXTROSE 5% NACL 0.45% 1,000 ML IV SCH (15:30)
[2017-09-21] MEDS: DEXTROSE 5% NACL 0.45% 1,000 ML IV SCH ×2 (02:16→15:45)
[2017-09-21] MEDS: BACITRACIN OINT 0.9 GM PACK TOP SCH (09:24)
[2017-09-21] MEDS: predniSONE 10 MG TABLET PO SCH (09:24)
[2017-09-21] MEDS: ALLOPURINOL 300 MG TABLET PO SCH (09:24)
[2017-09-21] MEDS: MAGNESIUM CHLORIDE 64 MG TABLET PO SCH ×2 (09:24→20:59)
[2017-09-21] MEDS: MULTIVITAMIN (CENTRUM) TABLET PO SCH (09:24)
[2017-09-21] MEDS: FLUTICASONE 50 MCG NASAL SPRAY 16 GM BOTTLE BOTH NARES SCH ×2 (09:24→20:59)
[2017-09-21] MEDS: amLODIPine 2.5 MG TABLET PO SCH (09:24)
[2017-09-21] MEDS: PANTOPRAZOLE 40 MG VIAL IV SCH ×2 (09:24→20:59)
[2017-09-22 06:02] LABS: Basophils % 0.1 % (0.0-0.8); Immature Granulocytes % 0.5 %; Immature Granulocytes Absolute 0.04 #; Lymphocytes % 24.5 % (21.3-54.2); Mean Corpuscular HGB Conc 33.3 GM/DL (32-36); Mean Corpuscular Hemoglobin 31 PG (27-34); Mean Corpuscular Volume 94.3 FL (87-102); Mean Platelet Volume 10.9 FL (9.6-12.0); Monocytes # 0.5 10*3/uL (0.11-0.8); Monocytes % 6.4 % (1.7-12.7); Neutrophils # 5.7 10*3/uL (1.4-7.4); Neutrophils % 68.5 % (38.7-73.9); Platelet Count 147 T/CUMM (130-400); Red Blood Count 3.18 MC/CUMM (3.8-5.5); Red Cell Distribution Width 15.4 % (9.3-17.3); White Blood Count 8.3 T/CUMM (4-12)
[2017-09-22 08:08] VITALS: BP 144/91
[2017-09-22] MEDS: PANTOPRAZOLE 40 MG VIAL IV SCH (09:28)
[2017-09-22] MEDS: ALLOPURINOL 300 MG TABLET PO SCH (09:28)
[2017-09-22] MEDS: MULTIVITAMIN (CENTRUM) TABLET PO SCH (09:28)
[2017-09-22] MEDS: MAGNESIUM CHLORIDE 64 MG TABLET PO SCH (09:28)
[2017-09-22] MEDS: amLODIPine 2.5 MG TABLET PO SCH (09:28)
[2017-09-22] MEDS: predniSONE 10 MG TABLET PO SCH (09:28)
[2017-09-22] MEDS: FLUTICASONE 50 MCG NASAL SPRAY 16 GM BOTTLE BOTH NARES SCH (09:35)
[2017-09-22] MEDS: ZINC OXIDE PASTE 113 GM TUBE TOP PRN (09:43)
[2017-09-22] MEDS: BACITRACIN OINT 0.9 GM PACK TOP SCH (09:43)
[2017-09-22] MEDS: SKIN HEALING OINT (AQUAPHOR) 50 GM TUBE TOP PRN (09:43)
[2017-09-22] MEDS: DEXTROSE 5% NACL 0.45% 1,000 ML IV SCH (13:08)
== END 2017-09-22 15:34 | DRG 377 ==
LOC: EDBD → EDSEX → EDUNIT# → N.ED 08:30 → SUATTDRO 12:55 → N.EDINP 12:55 → N.5E 14:35 → N.CC 15:28 → N.5E 09-17 12:48
PROVIDERS: ATTEND Internal Medicine Nephrology